=== PATIENT | female | born 1950 | race Two or more races ===

== ENCOUNTER 2018-10-09 06:46 | Day surgery (SDC) | payer MEDICARE, OTHER ==
[~2018-10-09] VITALS: Ht 147.3 cm; Wt 57.0 kg
[~2018-10-09 06:46] MED LIST: ACET-915 PO; BENZ1TAB7 PO; BISM262O PO; D-ME473S2; DOCU-159 PO; IBUP-1542 PO; IBUP-727; INSU100V23 SC; LEVO50TA89 PO; LORA-407; LORA-408 PO; MAA5 PO; MAGN400O19 PO; MEGE400O4; MIRT-30 PO; OXYB5TAB7 PO; PARO30TA48 PO; QUET200T PO; RISP3TAB25 PO; SIMV20TA2 PO; TEMA-106 PO; TRAZ-150
--- NOTE | 2018-10-09 07:46 | PREAC ---
Date/Time of Note Date/Time of Note DATE: 10/09/18 TIME: 07:44 Anesthesia Eval and Record Evaluation Time Pre-Procedure Interview DATE: 10/09/18 TIME: 07:44 Age 68 Sex female NPO: 8 hrs Preoperative diagnosis CHANGE IN BOWEL HABITS Planned procedure COLONOSCOPY Past Medical History Past Medical History: Includes Cardio: Dyslipidemia Endo: Hypothyroid Psych: Other (HX SCHIZOPHRENIA) Surgery & Anesthesia Issues No known issue Meds Anticoagulation: No Beta Brenden within 24 hr: No Reason Beta Brenden not given: Pt. not on B-Brenden Reported Medications [Thyroid Med.] No Conflict Check 10/09/18 [Sleep Med.] No Conflict Check 10/09/18 [Psychotropic Meds.] No Conflict Check 10/09/18 Levothyroxine Sodium* (Synthroid*) 50 Mcg Tablet, 50 MCG PO DAILY 12/12/10 Discontinued Reported Medications Benztropine Mesylate* (Cogentin*) 1 Mg Tab, 1 MG PO HS 12/12/10 Mirtazapine* (Remeron*) 15 Mg Tab, 15 MG PO HS 12/12/10 Docusate Sodium* (Docusate Sodium*) 100 Mg Capsule, 100 MG PO BID 12/12/10 Quetiapine Fumarate* (Seroquel*) 200 Mg Tablet, 200 MG PO HS 12/12/10 Risperidone* (Risperdal*) 3 Mg Tablet, 3 MG PO AMHS 12/12/10 Ibuprofen* (Ibuprofen*) 600 Mg Tablet, 600 MG PO TID 12/12/10 Paroxetine Hcl* (Paxil*) 30 Mg Tablet, 30 MG PO DAILY 12/12/10 Oxybutynin Chloride* (Ditropan*) 5 Mg Tab, 5 MG PO DAILY 12/12/10 Simvastatin (Simvastatin) 20 Mg Tablet, 20 MG PO HS 12/12/10 Lorazepam (Ativan) 1 Mg Tablet, 1 MG PO Q4 11/21/10 Temazepam (Restoril) 15 Mg Cap, 15 MG PO HS 11/21/10 Bismuth Subsalicylate* (Kaopectate*) 262 Mg/15 Ml Oral.susp, 130 MG PO DAILY 11/21/10 Al Hydroxide/Mg Hydroxide (Maalox) 148 Ml Susp, 225 MG PO Q6 11/21/10 Magnesium Hydroxide* (Milk Of Magnesia*) 400 Mg/5 Ml Oral.susp, 30 ML PO HS 11/21/10 Acetaminophen* (Tylenol*) 325 Mg Tab, 650 MG PO Q4 11/21/10 Insulin Regular, Human* (Novolin R*) 100 U/Ml Vial, SC BID 11/21/10 Dextromethorphan Hb-Promethazine Hcl* (Promethazine DM* Syrup) 473 Ml Syrup 10/31/10 Ibuprofen (Motrin) 600 Mg Tablet 10/31/10 Megestrol Acetate* (Megace*) 40 Mg/Ml Susp 10/31/10 Trazodone Hcl* (Desyrel*) 100 Mg Tablet, HS 10/31/10 Loratadine (Claritin) 10 Mg Tablet, DAILY 10/31/10 Meds reviewed: Yes Allergies Coded Allergies: No Known Drug Allergies (Verified Allergy, Unknown, 10/09/18) Allergies Reviewed: Yes Labs/Studies Labs Reviewed: Other (NONE) test: N/A Pre-procedure Exam Airway: Adequate mouth opening, Adequate thyromental dist Mallampati: Mallampati II Teeth: Normal (UPPER DENTURES ) Lung: Normal Heart: Normal ASA Physical Status ASA physical status: 2 Emergency: None Planned Anesthetic General/MAC: MAC, TIVA Planned Pain Management Parenteral pain med Pre-operative Attestations Prior to commencing anesthesia and surgery, the patient was re-evaluated, there was verification of: *The patient's identity *The results of appropriate recent lab work and preoperative vital signs *The above evaluation not changing prior to induction *Anesthetic plan, risk benefits, alternative and complications discussed with patient/family; questions answered; patient/family understands, accepts and wishes to proceed. RENZO MIX October 09, 2018 07:46
[2018-10-09] MEDS ORDERED: ONDANSETRON 4 MG INJ IV PRN (08:00)
[2018-10-09 08:09] VITALS: Ht 147.3 cm; Wt 57.0 kg
[2018-10-09] MEDS ORDERED: THYROID MED (08:31)
[2018-10-09] MEDS ORDERED: SLEEP MED (08:31)
[2018-10-09] MEDS ORDERED: [UNRECOGNIZED DRUG - OTHER] (08:31)
[2018-10-09] MEDS ORDERED: PROPOFOL 20 ML ONE (08:37)
[2018-10-09] MEDS ORDERED: LIDOCAINE 2% (SDV) 5 ML INJ ONE (08:38)
[2018-10-09 09:43] VITALS: BP 145/65; PULSE 94; RESP 18
--- NOTE | 2018-10-09 10:20 | PAC ---
Date/Time of Note Date/Time of Note DATE: 10/09/18 TIME: 10:19 Post-Anesthesia Notes Post-Anesthesia Note Last documented vital signs POST BP 115/65 HR 78 SPO2 100% TEMP 97 RR 16 Vital Signs Date Temp Pulse Resp B/P (MAP) Pulse Ox O2 O2 Flow FiO2 Time Delivery Rate 10/09/18 98.3 94 18 145/65 95 Room Air 09:43 (91) Activity: WNL Respiratory function: WNL Cardiovascular function: WNL Mental status: Baseline Pain reasonably controlled: Yes Hydration appropriate: Yes Nausea/Vomiting absent: Yes RENZO MIX October 09, 2018 10:20
[2018-10-09 10:40] VITALS: BP 134/65; PULSE 84; RESP 18
[2018-10-09 11:32] VITALS: BP 120/59; PULSE 70; RESP 17
== END 2018-10-09 10:46 | disposition home or self-care (01) ==
LOC: GIL 06:46
PROVIDERS: ATTEND Internal Medicine Gastroenterology
DX: R19.4 Change in bowel habit (principal); K64.8 Other hemorrhoids; E03.9 Hypothyroidism, unspecified
CPT/HCPCS: 88305